=== PATIENT | male | born 1950 | race Caucasian/White ===

== ENCOUNTER 2016-05-11 10:32 | Inpatient (IN) | payer MEDICARE, OTHER ==
[~2016-05-11] VITALS: Ht 182.9 cm; Wt 88.5 kg
[~2016-05-11 10:32] MED LIST: ALLO300T PO; AMLO5TAB2 PO; CEFAZOLIN 1GM IVPB FOR OMNI 50 ML IV PRN; CHOL200027 PO; CINN500C PO; CRESTOR10 MG PO; EMPA10TA PO; FENO48TA16 PO; FENTANYL PF 100 MCG/2 ML VIAL. IV PRN; FLUT15.88 NS; GLIP5TAB10 PO; HYDROMORPHONE 2 MG/ML VIAL. IV PRN; IV RINGERS,LACTATED 1000ML 1,000 ML IV SCH; LIDOCAINE 1% 1 ML SYRINGE. ID PRN; MELO-150 PO; METF10002 PO; MORPHINE SULFATE 2 MG/ML DISP.SYRIN. IV PRN; MULT-658 PO; OMEP20CA9 PO; ONDANSETRON PF 4 MG/2 ML VIAL. IV PRN; PROCHLORPERAZINE 10 MG/2 ML VIAL. IV PRN; RANI150C PO; SAXA5TAB PO; SILD100T PO; ZINC50TA33 PO; ZOLP10TA4 PO
[2016-05-11] MEDS ORDERED: PROPOFOL 20 ML IV ONE (11:18)
[2016-05-11] MEDS ORDERED: DESFLURANE > 120 MINUTES IH ONE (11:18)
[2016-05-11] MEDS ORDERED: DEXAMETHASONE SOD PHOS 20 MG/5 ML VIAL. ONE (11:18)
[2016-05-11] MEDS ORDERED: ONDANSETRON PF 4 MG/2 ML VIAL. ONE (11:18)
[2016-05-11] MEDS ORDERED: LIDOCAINE 2% 100 MG/5 ML SYRINGE. ONE (11:18)
--- NOTE | 2016-05-11 11:42 | EKG ---
[facility] [address] [place] [address] Test Date: 2016-05-11 Test Time: 11:42:44 Pat Name: PEARL CRUZMitaMariam Department: Room: [place] [address] Gender: M [employer] Worker: : 1950 Requested By: JASPREET SAHA Order Number: [id number] Reading MD: Measurements Intervals [place] Rate: 77 P: 43 OR: 142 QRS: 31 QRSD: 88 T: 43 QT: 372 QTc: 423 Interpretive Statements SINUS RHYTHM NO SPECIFIC ECG ABNORMALITIES RI6.01 No previous ECG available for comparison
[2016-05-11 11:43] LABS: BASO % 1 % (0-3); EOS % 1 % (0-3); HEMATOCRIT 39.8 % (39.0-53.0); HEMOGLOBIN 14.1 g/dL (13.0-17.5); LYMPH # 2.6 x10^3/uL (1.0-4.8); LYMPH % 37 % (24-48); MEAN CORPUSCULAR HEMOGLOBIN 29 pg (25-35); MEAN CORPUSCULAR HGB CONC 35 g/dL (31-37); MEAN CORPUSCULAR VOLUME 81 fL (79-100); MONO % 7 % (0-9); NEUT % 55 % (31-73); PLATELET COUNT 214 x10^3/uL (140-400); RED BLOOD COUNT 4.89 x10^6/uL (4.30-5.70); RED CELL DISTRIBUTION WIDTH 14.4 % (11.5-14.5); WHITE BLOOD COUNT 7.1 x10^3/uL (4.0-11.0)
[2016-05-11] MEDS ORDERED: BUPIVACAINE 0.5% 50 ML VIAL. ONE (11:57)
[2016-05-11] MEDS ORDERED: MIDAZOLAM HCL/PF 2 MG/2 ML VIAL. ONE (11:57)
[2016-05-11] MEDS ORDERED: EPINEPHRINE 1 MG/ML VIAL. ONE (11:58)
[2016-05-11] MEDS ORDERED: EPINEPHRINE 30 MG/30 ML VIAL. ONE (12:12)
--- NOTE | 2016-05-11 15:55 | PDOC ---
BRIEF OPERATIVE NOTE Date: May 11, 2016 Pre-Op Diagnosis rotator cuff tear Post-Op Diagnosis sameplus impingement and ac djd Procedure Performed right shoulder arthroscopic rotator cuff repair, SAD, DCR Surgeon Ayleen Anesthesia Type: General, Regional Blood Loss 25cc Findings complex tear Complications none JASPREET SAHA MD May 11, 2016 15:55
--- NOTE | 2016-05-11 15:58 | DISCH ---
DISCHARGE INSTRUCTIONS Condition on Discharge Condition on Discharge: Stable Activity After Discharge Activity Instructions for Disc: Other, see below Other activity instructions: may hang arm at side, no active motion of elbow away from body Weight Bearing Status after Di: Other, see below (passive range of motion and pendulum exercises home and with PT ok) Diet after Discharge Diet after Discharge: Regular Wound Incision Care Wound/Incision Care: Change dressing Other wound/incision instructi: remove dressing 2 days may then shower Community/Resources/Services Services at Discharge: PT EVALUATE & TREAT Contacting the after DC Call your doctor for: Concerns you may have Follow-Up Follow up with: Ayleen 7-10 days JASPREET SAHA MD May 11, 2016 15:58
[2016-05-11] MEDS ORDERED: HYDR2TAB13 PO (16:11)
[2016-05-11 17:06] VITALS: BP 136/71
[2016-05-11] MEDS ORDERED: ACETAMINOPHEN 325 MG TABLET. PO ONE (17:14)
[2016-05-11] MEDS ORDERED: HYDROMORPHONE 2 MG TABLET. PO PRN (17:15)
[2016-05-11] MEDS ORDERED: ACETAMINOPHEN 500 MG TABLET PO ONE (17:15)
--- NOTE | 2016-05-11 23:08 | HP ---
ADMIT DATE: 05/11/2016 CHIEF COMPLAINT: Right shoulder pain and rotator cuff tear. HISTORY OF PRESENT ILLNESS: The patient is a 65-year-old male fell just after Thanksgiving with significant right shoulder pain, difficulty raising his right shoulder and has continued weakness. It hurts with any lifting weight away from his body or attempting overhead or pulling to the side, he has to sleep on his left side due to pain with any pressure at night. He has undergone extensive preoperative physical therapy at the [facility], which has given him very limited relief, injection gave him mild limited relief as well. PAST MEDICAL HISTORY: Significant for non-insulin dependent diabetes, taking oral medications as well as hypercholesterolemia, hypertension, arthritis, and gout. PAST SURGICAL HISTORY: Significant for skin cancer removal on his face in 03/26, right hip replacement in 2005, and a microdiskectomy in his back. FAMILY HISTORY: Denies any significant family history. SOCIAL HISTORY: Denies smoking, occasional social consumption of alcohol, denies drug use. MEDICATIONS: List is reviewed. ALLERGIES: INCLUDE DOXYCYCLINE. REVIEW OF SYSTEMS: Negative for any chest pain, shortness of breath, focal weakness, numbness, tingling and no constitutional symptoms, fever, chills, etc. PHYSICAL EXAMINATION: VITAL SIGNS: Per admission sheet. GENERAL: Well-developed, well-nourished. HEENT: Atraumatic, normocephalic. HEART: Regular rate and rhythm. LUNGS: Clear to auscultation bilaterally. EXTREMITIES: Examination of the upper extremities reveals significant weakness in all planes of the right shoulder and rotator cuff resisted strength testing. No apprehension or instability. He does have pain with impingement, tenderness on palpation and compression over the acromioclavicular joint. Normal parascapular motion. Normal examination of the contralateral shoulder, bilateral elbows and wrists with intact motor function, distal pulses, sensation, reflexes and skin in both upper extremities throughout. IMAGING: MRI had been previously confirmed a full thickness rotator cuff tear. IMPRESSION: Right shoulder rotator cuff tear. TREATMENT PLAN: Given the significant amount of retraction and the rotator cuff, I told him that it is certainly possible to get a good repair on this area, but dependent on the amount of retraction scarring and tissue quality, it is possible that there may not be repair possible and we did have a backup option of reverse total shoulder arthroplasty if the cuff could really not be repaired. We also talked about any other indicated operative procedures along with this including removal of any bone spur, degenerative changes done with the collar bone or anything else that may be symptomatic for him in the future that we would address all this at the same time. He is aware of the long recovery process, possibility of medical or other anesthetic complications such as infection, nerve or blood vessel damage, continued pain, nonhealing, among other issues. All his questions were answered. Consent was obtained and he agrees to proceed with operative evaluation and treatment, which will be on a planned outpatient basis for rotator cuff repair or the admission in the case of the backup reverse shoulder arthroplasty. JASPREET SAHA MD DR: SILVIA/deojn JOB#: [id number] / [id number] Juan Francisco Nava
--- NOTE | 2016-05-12 09:29 | OP ---
DATE OF SURGERY: 05/11/2016 PREOPERATIVE DIAGNOSIS: Right shoulder rotator cuff tear and impingement. POSTOPERATIVE DIAGNOSES: Right shoulder rotator cuff tear and impingement with acromioclavicular degenerative joint disease. PROCEDURE: Right shoulder arthroscopy, subacromial decompression, distal clavicle excision, and arthroscopic rotator cuff repair. SURGEON: Bacilio Abbasi M.D. ANESTHESIA: General endotracheal plus scalene block. ESTIMATED BLOOD LOSS: 25 mL. COMPLICATIONS: None. OPERATIVE INDICATIONS: The patient is a 65-year-old male who has had pain and weakness in the left shoulder since a fall around , initially unable to lift the arm at all, subsequently has undergone physical therapy with little improvement in his activity level. He ____ some pain relief temporary with a shoulder injection, but overall is very limited in terms of his lifting away from his body or overhead activities of daily living. MRI had confirmed the complete rotator cuff tear with retraction. I had gone over with him both in the clinic and preoperatively the large and significant retraction of the tear, the possibility of being not repairable and potentially a backup plan if it is not of reverse total shoulder arthroplasty that ideally if repairable we would like to proceed with repair. I described that process the rationale for protection and postoperative restrictions and described the long recovery process, the risks of failure of the repair, possible infection, nerve or blood vessel damage, medical or other anesthetic complications among others and some pain limitations under the best of circumstances not feel repair. All his questions were answered. Consent was obtained and he agrees to proceed with operative evaluation and treatment. DESCRIPTION OF PROCEDURE: The patient was identified, procedure verified, the patient placed in the supine position on the operating table. After adequate amounts of general endotracheal anesthesia plus a preexisting scalene block, he was placed in the beach chair position with the T-max headrest in the spider arm clemons and the right shoulder prepped and draped in standard sterile fashion. After timeout was performed, the patient and procedure identified and verified, a posterior portal was established and anterior portal established using spinal needle localization and the shoulder joint was systematically examined. He was noted to have an intact biceps anchor and capsule ligamentous structures. He had a large retracted complex tear of the supraspinatus and infraspinatus tendons. Subscapularis was noted to be intact as well as the glenohumeral joint surface. The rotator cuff was mobilized from its superior and inferior surfaces. Subacromial space was entered and bursectomy performed to allow visualization. The tear was barely examined and found to be quite complex in nature. It was had an upper layer with significant retraction of that infraspinatus and then the undersurface layer again was noted to have somewhat of a split and margin convergence sutures was placed side to side with the bird beak and tied with sliding, locking knot backed up by alternating post-half hitches. Good margin convergence was obtained. A total of 2 Healicoil anchors were placed along the medial row and sutures were placed in mattress fashion. Beyond the area of the margin convergence suture for reinforcement, additional traction sutures were placed and the infraspinatus ____ as well the medial row repair was completed with sliding, locking knot backed up by alternating post-half hitches. Alternate sutures were trimmed to allow lateral row fixation of the traction suture as well as the remaining suture limbs from the medial row repair, which were brought over laterally and fixed with Multifix S anchors laterally. Excellent watertight repair was noted and anatomic as possible in nature. It should be noted an additional margin convergence suture was placed during this process to close a longitudinal defect as well obtaining the watertight repair. The repair was examined in all degrees of internal and external rotation. Excess suture was trimmed away. The previous decompression was carried out with the arthroscopic bur and the posterior portal using cutting block technique converting the acromion to a type 1 nature. Distal clavicle was noted to be narrowed and arthritic and was excised 1 cm preserving the overlying joint capsule for stability. Any bony fragments were removed with the arthroscopic shaver at that time following rotator cuff repair described above. The joint was drained of arthroscopic fluid. Portals closed with nylon suture. Sterile dressings were applied. The patient was returned to recovery room in stable condition having tolerated the procedure well being placed in immobilizer. BACILIO ABBASI MD DR: SILVIA/dejon JOB#: [id number] / [id number] RAQUEL Randhawa MD
== END 2016-05-11 18:11 | disposition home or self-care (01) | DRG 512 ==
LOC: OPSVCIP 10:41
PROVIDERS: ADMIT Orthopaedic Surgery; ATTEND Orthopaedic Surgery
PROC: 0LQ14ZZ Repair Right Shoulder Tendon, Percutaneous Endoscopic Approach (ICD-10-PCS; 2016-05-11)
PROC: 0PB94ZZ Excision of Right Clavicle, Percutaneous Endoscopic Approach (ICD-10-PCS; principal; 2016-05-11 12:45)
DX: M75.101 Unspecified rotator cuff tear or rupture of right shoulder, not specified as traumatic (principal); E11.9 Type 2 diabetes mellitus without complications; E78.00 Pure hypercholesterolemia, unspecified; I10 Essential (primary) hypertension; M10.9 Gout, unspecified; M19.011 Primary osteoarthritis, right shoulder; Z96.641 Presence of right artificial hip joint; Z85.828 Personal history of other malignant neoplasm of skin; Z88.8 Allergy status to other drugs, medicaments and biological substances
CPT/HCPCS: 36415; 82947; 85027; 93005; C1713; J0171; J0690; J1100; J2250; J2405; J2704; J3490; J7120

== ENCOUNTER 2016-09-03 17:49 | Emergency (ER) | payer MEDICARE, OTHER ==
[~2016-09-03] VITALS: Ht 182.9 cm; Wt 88.9 kg
[~2016-09-03 17:49] MED LIST changes: -CEFAZOLIN 1GM IVPB FOR OMNI 50 ML IV PRN; -CINN500C PO; +CINN500C2 PO; -FENTANYL PF 100 MCG/2 ML VIAL. IV PRN; +HYDR2TAB31 PO; -HYDROMORPHONE 2 MG/ML VIAL. IV PRN; -IV RINGERS,LACTATED 1000ML 1,000 ML IV SCH; -LIDOCAINE 1% 1 ML SYRINGE. ID PRN; -MELO-150 PO; +MELO15TA23 PO; +METF-620 PO; -METF10002 PO; -MORPHINE SULFATE 2 MG/ML DISP.SYRIN. IV PRN; -ONDANSETRON PF 4 MG/2 ML VIAL. IV PRN; -PROCHLORPERAZINE 10 MG/2 ML VIAL. IV PRN
[2016-09-03] MEDS ORDERED: IV NORMAL SALINE 1000ML BAG 1,000 ML IV ONE (18:00)
[2016-09-03 18:04] VITALS: BP 174/96
--- NOTE | 2016-09-03 18:52 | PHYS DOC ---
Past Medical History Past Medical History: Diabetes-Type II, High Cholesterol, Hypertension Past Surgical History: Other Additional Past Surgical Histo: SHOULDER SX Alcohol Use: Occasionally Drug Use: Marijuana Adult General Chief Complaint Chief Complaint: BLOOD SUGAR PROBLEM HPI HPI Patient is a 66 year old male who presents with chief complaint of feeling dizzy, blurry vision and lightheaded, his blood sugars were elevated today. Patient denies any recent illnesses or pain. Patient is only taking metformin for his sugar control. Today he decided to drink some sugary drinks that he doesn't usually drink. Patient has no other complaints Review of Systems Review of Systems Constitutional: Denies fever or chills [] Eyes: Blurry vision, no pain [] HENT: Denies nasal congestion or sore throat [] Respiratory: Denies cough or shortness of breath [] Cardiovascular: No chest pain GI: Denies abdominal pain, nausea, vomiting, or diarrhea [] : Denies dysuria or hematuria [] Musculoskeletal: Denies back pain or joint pain [] Integument: Denies rash or skin lesions [] Neurologic: Denies headache, focal weakness or sensory changes. yes dizziness Endocrine: Denies polyuria. Has increased thirst Current Medications Current Medications Current Medications Medications (Trade) Dose Ordered Sig/Perico Start Time Stop Time Status Last Admin Dose Admin Sodium Chloride 1,000 ml @ 1,000 mls/hr 1X ONCE 09/03/16 18:00 09/03/16 18:59 DC 09/03/16 18:00 1,000 MLS/HR Allergies Allergies Allergies Coded Allergies Type Severity Reaction Last Updated Verified doxycycline Allergy Intermediate BROKE OUT WITH RASH 05/11/16 Yes Physical Exam Physical Exam Constitutional: Well developed, well nourished, no acute distress, non-toxic appearance. [] HENT: Normocephalic, atraumatic,, oropharynx dry, no oral exudates, nose normal. [] Eyes: EOMI, conjunctiva normal, no discharge. [] Neck: Normal range of motion, trachea midline, no stridor. [] Cardiovascular:Heart rate regular rhythm, no murmur normal perfusion, no vascular insufficiency Lungs & Thorax: Bilateral breath sounds clear to auscultation, no tachypnea Kussmaul respirations Abdomen: Bowel sounds normal, no distention. [] Skin: Warm, dry, no erythema, no rash. [] Back: No tenderness, normal range of motion. [] Extremities: No tenderness, no cyanosis, no clubbing, ROM intact, no edema. No signs of DVT Neurologic: Alert and oriented X 3, normal motor function, ambulates in the ED with normal gait and without assistance, no focal deficits noted. [] Psychologic: Affect normal, judgement normal, mood normal. [] Current Patient Data Vital Signs Vital Signs Date Time Temp Pulse Resp B/P (MAP) Pulse Ox O2 Delivery O2 Flow Rate FiO2 09/03/16 18:04 98.3 74 18 174/96 (122) 94 Room Air 98.3 Lab Values Laboratory Tests Test 09/03/16 18:01 09/03/16 18:53 09/03/16 20:01 Glucose (Fingerstick) 310 mg/dL (70-99) H 240 mg/dL (70-99) H POC Hemoglobin 11.6 g/dL (14-18) L POC Hematocrit 34 % (37-52) L POC Sodium 138 mmol/L (135-145) POC Potassium 4.1 mmol/L (3.5-5.0) POC Chloride 98 mmol/L (98-110) POC Total CO2 28 mmol/L (23-32) Anion Gap 17 mmol/L (6-14) H POC Blood Urea Nitrogen 17 mg/dL (8-26) POC Creatinine 0.8 mg/dL (0.5-1.4) Glucose Level 330 mg/dL (70-99) H POC Ionized Calcium (Angela) 1.29 mmol/L (1.13-1.32) Laboratory Tests 09/03/16 18:53 EKG EKG [] Radiology/Procedures Radiology/Procedures [] Course & Med Decision Making Course & Med Decision Making Pertinent Labs and Imaging studies reviewed. (See chart for details) 1851 patient in no distress received fluids. 1950 pt feeel much improved, ambulates to bathroom unassisted and with normal gait. [] Dragon Disclaimer Dragon Disclaimer This electronic medical record was generated, in whole or in part, using a voice recognition dictation system. Departure Departure Impression: Primary Impression: Hyperglycemia Additional Impressions: Dehydration Diabetes Disposition: HOME, SELF-CARE Condition: IMPROVED Referrals: RAQUEL JETT MD (PCP) Patient Instructions: Dehydration, Adult, [id number], Diabetes Meal Planning Guide, Hyperglycemia, [id number] Additional Instructions: follow up with you pcp for discussion of the ED visit today and possible need for modification of your diabetes medication Problem Qualifiers Alysia SHEA MD Sep 03, 2016 18:52
[2016-09-03 18:57] LABS: POTASSIUM ISTAT 4.1 mmol/L (3.5-5.0)
== END 2016-09-03 20:29 | disposition home or self-care (01) ==
LOC: ER 17:49
DX: E11.65 Type 2 diabetes mellitus with hyperglycemia (principal); E86.0 Dehydration; I10 Essential (primary) hypertension; E78.00 Pure hypercholesterolemia, unspecified; F12.10 Cannabis abuse, uncomplicated; Z88.1 Allergy status to other antibiotic agents
CPT/HCPCS: 80047; 82962; 96360; 99284; J7030; 36415

== ENCOUNTER → 2016-12-17 | Outpatient (CLI) | payer MEDICARE, OTHER ==
--- NOTE | 2016-12-17 13:34 | KCIC ---
EXAM: Right inguinal sonogram. HISTORY: Palpable lump. TECHNIQUE: Sonographic imaging of the right inguinal region at the site of palpable concern was performed. COMPARISON: None. FINDINGS: There are inguinal lymph nodes at the site of palpable concern, measuring 2.4 x 1.1 x 0.6 cm and 1.2 x 1.0 x 0.7 cm. These demonstrate benign-appearing fatty keisha within cortices. There is no suspicious lymph node morphology. No additional lesion is seen within the inguinal region. There is no hernia. IMPRESSION: Benign-appearing right inguinal lymph nodes at the site of palpable concern. Electronically signed by: Brooklynn John MD (12/17/2016 1:31 PM) [facility]
== END | disposition home or self-care (01) ==
LOC: KCIC US 12:09
PROVIDERS: ATTEND Physician Assistant
DX: R22.9 Localized swelling, mass and lump, unspecified (principal)
CPT/HCPCS: 76882

== ENCOUNTER 2020-10-25 16:33 | Emergency (ER) | payer MEDICARE, OTHER ==
[~2020-10-25] VITALS: Ht 182.9 cm; Wt 84.0 kg
[~2020-10-25 16:33] MED LIST changes: +AMLO-186 PO; -AMLO5TAB2 PO; +FLUT15.845 NS; -FLUT15.88 NS; -METF-620 PO; +METF10007 PO; +OMEP20CA16 PO; -OMEP20CA9 PO
--- NOTE | 2020-10-25 17:14 | PHYS DOC ---
Past Medical History Past Medical History: Diabetes-Type II, High Cholesterol, Hypertension (DELORIS PHAM DATABASE SOFTWARE TECHNICIAN) Past Surgical History: Other Additional Past Surgical Histo: SHOULDER SX (DELORIS PHAM APRN) Smoking Status: Never Smoker Alcohol Use: Occasionally Drug Use: Marijuana (DELORIS PHAM APRN) General Adult EDM: Chief Complaint: ABDOMINAL PAIN HPI: HPI: Patient is a 70 year old male who presents with right sharp shooting flank pain that wraps around to his right side of his abdomen that started today. He states the pain will worsen and then lessen. At this time is a 7 out of 10. He is nauseated but has not vomited. Patient states he is not taking his medications every day. He is hypertensive here. He states that he did take a laxative thinking that maybe he had some constipation. He states that he drinks 2 times a week but has not today. He has a history of diabetes, gout, GERD, hypertension, high cholesterol. (DELORIS PHAM APRN) Review of Systems: Review of Systems: Constitutional: Denies fever or chills. [] Eyes: Denies change in visual acuity. [] HENT: Denies nasal congestion or sore throat. [] Respiratory: Denies cough or shortness of breath. [] Cardiovascular: Denies chest pain or edema. [] GI: + abdominal pain, +nausea, denies vomiting, bloody stools or diarrhea. [] : Denies dysuria. [] Musculoskeletal: + Right flank back pain or denies joint pain. [] Integument: Denies rash. [] Neurologic: Denies headache, focal weakness or sensory changes. [] Endocrine: Denies polyuria or polydipsia. [] Lymphatic: Denies swollen glands. [] Psychiatric: Denies depression or anxiety. [] (DELORIS PHAM DATABASE SOFTWARE TECHNICIAN) Heart Score: C/O Chest Pain: No (DELORIS PHAM APRN) Current Medications: Current Medications Medications (Trade) Dose Ordered Sig/Perico Start Time Stop Time Status Last Admin Dose Admin Fentanyl Citrate (Fentanyl 2ml Vial) 50 mcg 1X ONCE 10/25/20 17:15 10/25/20 17:16 UNV Ondansetron HCl (Zofran) 4 mg 1X ONCE 10/25/20 17:15 10/25/20 17:16 UNV Sodium Chloride 1,000 ml @ 1,000 mls/hr Q1H 10/25/20 17:15 10/25/20 18:14 UNV (DELORIS PHAM APRN) Allergies: Allergies: Allergies Coded Allergies Type Severity Reaction Last Updated Verified doxycycline Allergy Intermediate BROKE OUT WITH RASH 05/11/16 Yes (DELORIS PHAM APRN) Physical Exam: PE: Constitutional: Well developed, well nourished, no acute distress, non-toxic appearance. [] HENT: Normocephalic, atraumatic, bilateral external ears normal, oropharynx moist, no oral exudates, nose normal. [] Eyes: PERRLA, EOMI, conjunctiva normal, no discharge. [] Neck: Normal range of motion, no tenderness, supple, no stridor. [] Cardiovascular:Heart rate regular rhythm, no murmur [] Lungs & Thorax: Bilateral breath sounds clear to auscultation [] Abdomen: Bowel sounds normal, soft, no tenderness, no masses, no pulsatile masses. [] Skin: Warm, dry, no erythema, no rash. [] Back: No tenderness, no CVA tenderness. [] Extremities: No tenderness, no cyanosis, no clubbing, ROM intact, no edema. [] Neurologic: Alert and oriented X 3, normal motor function, normal sensory function, no focal deficits noted. [] Psychologic: Affect normal, judgement normal, mood normal. [] Normal physical exam (DELORIS PHAM APRN) Current Patient Data: Vital Signs: Vital Signs Date Time Temp Pulse Resp B/P (MAP) Pulse Ox O2 Delivery O2 Flow Rate FiO2 10/25/20 20:10 74 14 148/81 (103) 99 Room Air 10/25/20 19:40 72 17 156/80 (105) 99 Room Air 10/25/20 19:10 74 16 156/86 (109) 99 Room Air 10/25/20 18:40 74 17 173/96 (121) 99 Room Air 10/25/20 18:37 16 100 10/25/20 17:59 14 Room Air 10/25/20 17:29 16 100 10/25/20 17:07 98.4 65 16 222/110 (147) 100 Room Air 98.4 (BROWNNOEL M DO) EKG: EKG: [] (DELORIS PHAM APRN) Radiology/Procedures: Radiology/Procedures: [] Impression: [facility] [address] [place] [address] IMAGING REPORT Signed PATIENT: PEARL CRUZ V ACCOUNT: [id number] : 1950 LOCATION: ER AGE: 70 SEX: M EXAM STATUS: PRE ER ORD. PHYSICIAN: DELORIS PHAM APRN REASON: Right sided abdominal pain PROCEDURE: CT ABD PELV W/ IV CONTRST ONLY Study: CT abdomen/pelvis with intravenous contrast Indication: Right-sided abdominal pain. Comparison: None. Technique: Helical CT imaging performed of the abdomen and pelvis after the intravenous administration of 60 cc Omnipaque 300 contrast. Sagittal and coronal reformats were obtained. One or more of the following individualized dose reduction techniques were utilized for this examination: 1. Automated exposure control 2. Adjustment of the mA and/or kV according to patient size 3. Use of iterative reconstruction technique. Findings: Chest: Small hiatal hernia. Liver: No focal parenchymal abnormality. Gallbladder/Biliary Tree: Unremarkable. Pancreas: Unremarkable. Spleen: Mildly enlarged at 14.4 cm longitudinal. A few granulomas. Adrenal Glands: No adrenal gland mass. Kidneys/Ureters/Bladder: Asymmetric perinephric edema on the right in addition to mild hydroureteronephrosis and edema along the ureter. Hindered assessment of the distal ureter due to streak artifact from a total right hip arthroplasty but it is favored that there is a thin approximate 3 mm stone at the ureterovesicular junction on image 69 series 2. Millimetric intrarenal stone noted at the upper pole on the right as well. Renal cystic focus on the left measuring simple density. The partially assessed bladder is within normal limits. Reproductive Organs: Mild enlargement of the prostate measuring 5 cm transverse. Colon: Several diverticuli without diverticulitis. Appendix: Normal, image 20 series 4. Small Bowel: Nonobstructed. Stomach: Unremarkable. Vasculature: Scattered calcified and noncalcified atheromatous plaque. Nonaneurysmal aorta. Lymph Nodes: A few mildly prominent lymph nodes but not overtly enlarged and favored reactive. Peritoneum and Body Wall: Fat-containing inguinal hernia on the left. Mild diastases containing fat at the umbilicus. Bones: Total right hip arthroplasty. Chronic remodeling and adjacent chronic ossific fragments at the anterior right femur. Scattered degenerative changes. Mild endplate concavity at a few levels but no acute fracture. Miscellaneous: None. Impression: 1. Mild hydroureteronephrosis on the right and edema around the kidney/collecting system. There appears to be a small approximate 3 mm stone at the ureterovesicular junction (image 69 series 2) noting hindered assessment due to streak artifact from a right hip arthroplasty. No additional acute finding throughout the abdomen or pelvis. 2. Several chronic observations described in the body of the report. Electronically signed by: OSCAR BARDALES MD (10/25/2020 6:40 PM) [facility] DICTATED and SIGNED BY: OSCAR BARDALES MD DATE: 10/25/20 [id number] (DELORIS PHAM APRN) Course & Med Decision Making: Course & Med Decision Making Pertinent Labs and Imaging studies reviewed. (See chart for details) See HPI. Alert and oriented x4. Ambulatory steady gait. Speaks in full clear sentences. Skin pink warm and dry. Abdomen is soft but seems distended. No tenderness to the abdomen. [] (DELORIS PHAM APRN) Course & Med Decision Making I have reviewed and was available for consultation in the emergency department for this patient that was seen by midlevel provider. Agree with plan. Noel Ahmadi DO (ONEL AHMADI DO) [place] Disclaimer: [place] Disclaimer: This electronic medical record was generated, in whole or in part, using a voice recognition dictation system. (DELORIS PHAM APRN) Departure Departure Impression: Primary Impression: Kidney stone on right side Disposition: 01 HOME / SELF CARE / HOMELESS Condition: STABLE Referrals: RAQUEL JETT MD (PCP) Patient Instructions: Kidney Stones Additional Instructions: Follow-up with your primary care or a urologist of your choice. You can follow- up with [facility] or [facility]. Drink plenty of fluids. If at any point you cannot keep down any fluids you need to return to the emergency room. Scripts Tamsulosin Hcl (FLOMAX) 0.4 Mg Cap.er.24h 1 CAP PO DAILY, #30 CAP Prov: DELORIS PHAM DATABASE SOFTWARE TECHNICIAN 10/25/20 Oxycodone/Apap 5-325 (PERCOCET 5-325 MG TABLET ) 1 Each Tablet 1 TAB PO PRN Q6HRS PRN for PAIN for 5 Days, #25 TAB 0 Refills Prov: DELORIS PHAM DATABASE SOFTWARE TECHNICIAN 10/25/20 DELORIS PHAM APRN Oct 25, 2020 17:14 NOEL AHMADI DO Oct 26, 2020 06:31
[2020-10-25] MEDS ORDERED: fentaNYL PF VIAL 100 MCG/2 ML VIAL IVP ONE ×2 (17:15→18:45)
[2020-10-25] MEDS ORDERED: ONDANSETRON PF 4 MG/2 ML VIAL. IVP ONE (17:15)
[2020-10-25] MEDS ORDERED: IV NORMAL SALINE 1000ML BAG 1,000 ML IV SCH (17:15)
[2020-10-25 17:41] LABS: BASO % 0 % (0-3); EOS # 0.1 x10^3/uL (0.0-0.7); EOS % 1 % (0-3); HEMATOCRIT 40.4 % (39.0-53.0); HEMOGLOBIN 14.6 g/dL (13.0-17.5); LYMPH # 7.1 x10^3/uL (1.0-4.8); LYMPH % 47 % (24-48); MEAN CORPUSCULAR HEMOGLOBIN 30 pg (25-35); MEAN CORPUSCULAR HGB CONC 36 g/dL (31-37); MEAN CORPUSCULAR VOLUME 83 fL (79-100); MONO # 0.5 x10^3/uL (0.0-1.1); MONO % 3 % (0-9); NEUT # 7.3 x10^3/uL (1.8-7.7); NEUT % 49 % (31-73); PLATELET COUNT 203 x10^3/uL (140-400); RED CELL DISTRIBUTION WIDTH 13.7 % (11.5-14.5)
[2020-10-25 17:49] LABS: CALCIUM 9.9 mg/dL (8.5-10.1); CREATININE 1.4 mg/dL (0.7-1.3); GFR 50.1; POTASSIUM 3.7 mmol/L (3.5-5.1)
[2020-10-25 17:55] LABS: ALBUMIN 4.5 g/dL (3.4-5.0); ALBUMIN/GLOBULIN RATIO 1.4 (1.0-1.7); TOTAL BILIRUBIN 1.5 mg/dL (0.2-1.0); TOTAL PROTEIN 7.8 g/dL (6.4-8.2)
[2020-10-25] MEDS ORDERED: IOHEXOL 300 MG/ML 100ML VIAL. IV ONE (18:00)
--- NOTE | 2020-10-25 18:43 | RAD ---
Study: CT abdomen/pelvis with intravenous contrast Indication: Right-sided abdominal pain. Comparison: None. Technique: Helical CT imaging performed of the abdomen and pelvis after the intravenous administratio n of 60 cc Omnipaque 300 contrast. Sagittal and coronal reformats were obtained. One or more of the following individualized dose reduction techniques were utilized for this examinat ion: 1. Automated exposure control 2. Adjustment of the mA and/or kV according to patient size 3. Use of iterative reconstruction technique. Findings: Chest: Small hiatal hernia. Liver: No focal parenchymal abnormality. Gallbladder/Biliary Tree: Unremarkable. Pancreas: Unremarkable. Spleen: Mildly enlarged at 14.4 cm longitudinal. A few granulomas. Adrenal Glands: No adrenal gland mass. Kidneys/Ureters/Bladder: Asymmetric perinephric edema on the right in addition to mild hydroureterone phrosis and edema along the ureter. Hindered assessment of the distal ureter due to streak artifact f rom a total right hip arthroplasty but it is favored that there is a thin approximate 3 mm stone at t he ureterovesicular junction on image 69 series 2. Millimetric intrarenal stone noted at the upper po le on the right as well. Renal cystic focus on the left measuring simple density. The partially asses sed bladder is within normal limits. Reproductive Organs: Mild enlargement of the prostate measuring 5 cm transverse. Colon: Several diverticuli without diverticulitis. Appendix: Normal, image 20 series 4. Small Bowel: Nonobstructed. Stomach: Unremarkable. Vasculature: Scattered calcified and noncalcified atheromatous plaque. Nonaneurysmal aorta. Lymph Nodes: A few mildly prominent lymph nodes but not overtly enlarged and favored reactive. Peritoneum and Body Wall: Fat-containing inguinal hernia on the left. Mild diastases containing fat a t the umbilicus. Bones: Total right hip arthroplasty. Chronic remodeling and adjacent chronic ossific fragments at the anterior right femur. Scattered degenerative changes. Mild endplate concavity at a few levels but no acute fracture. Miscellaneous: None. Impression: 1. Mild hydroureteronephrosis on the right and edema around the kidney/collecting system. There appe ars to be a small approximate 3 mm stone at the ureterovesicular junction (image 69 series 2) noting hindered assessment due to streak artifact from a right hip arthroplasty. No additional acute finding throughout the abdomen or pelvis. 2. Several chronic observations described in the body of the report. Electronically signed by: OSACR BARDALES MD (10/25/2020 6:40 PM) [facility]
[2020-10-25] MEDS ORDERED: TAMS0.4C97 PO (18:59)
[2020-10-25] MEDS ORDERED: OXYC1TAB15 PO (18:59)
[2020-10-25] MEDS ORDERED: KETOROLAC 30 MG/ML VIAL. IVP ONE (19:00)
[2020-10-25] MEDS ORDERED: TAMSULOSIN 0.4 MG CAP.ER.24H. PO ONE (19:15)
[2020-10-25 19:42] LABS: BILIRUBIN,URINE NEGATIVE (NEG); CLARITY,URINE CLEAR; COLOR,URINE YELLOW; NITRITE,URINE NEGATIVE (NEG); PROTEIN,URINE 30 mg/dL (NEG-TRACE)
[2020-10-25 19:52] LABS: HYALINE CASTS, URINE MODERATE /HPF
[2020-10-25 19:53] LABS: AMORPHOUS SEDIMENT,UR PRESENT /HPF; BACTERIA,URINE 0 /HPF (0-FEW); WBC,URINE 0 /HPF (0-4)
[2020-10-25 20:10] VITALS: BP 148/81
== END 2020-10-25 20:20 | disposition home or self-care (01) ==
LOC: ER 16:33
DX: N13.2 Hydronephrosis with renal and ureteral calculous obstruction (principal); E11.9 Type 2 diabetes mellitus without complications; E78.00 Pure hypercholesterolemia, unspecified; I10 Essential (primary) hypertension; K21.9 Gastro-esophageal reflux disease without esophagitis; Z88.1 Allergy status to other antibiotic agents
CPT/HCPCS: 36415; 74177; 80053; 81001; 83690; 84484; 85025; 96361; 96374; 96375; 96376; 99285; J1885; J2405; J3010; J7030; Q9967